=== PATIENT | male | born 1985 | race African-American/Black ===

== ENCOUNTER 2017-02-27 00:12 | Emergency (ER) | payer MEDICARE ==
[~2017-02-27] VITALS: Ht 180.3 cm; Wt 70.3 kg
[2017-02-27 01:30] VITALS: BP 149/89
== END 2017-02-27 02:14 | disposition home or self-care (01) ==
LOC: ER 00:18
DX: K08.89 Other specified disorders of teeth and supporting structures (principal)

== ENCOUNTER 2017-09-08 19:48 | Emergency (ER) | payer MEDICARE ==
[~2017-09-08] VITALS: Ht 175.3 cm; Wt 71.7 kg
[2017-09-08 22:18] VITALS: BP 150/80
== END 2017-09-08 23:34 | disposition home or self-care (01) ==
LOC: ER 19:48
DX: S13.4XXA Sprain of ligaments of cervical spine, initial encounter (principal); V43.62XA Car passenger injured in collision with other type car in traffic accident, initial encounter; Y93.89 Activity, other specified; Y92.89 Other specified places as the place of occurrence of the external cause; Y99.8 Other external cause status
CPT/HCPCS: 72125